=== PATIENT | female | born 1995 | race Caucasian/White ===

== ENCOUNTER 2018-08-06 13:59 | Inpatient (IN) | payer OTHER ==
[~2018-08-06] VITALS: Ht 149.9 cm; Wt 83.2 kg
[2018-08-06 14:13] VITALS: Ht 149.9 cm; Wt 83.2 kg
[2018-08-06 17:27] LABS: BASOPHIL % 0.4 % (0-2); PLATELET COUNT 341 x10^3mcL (130-400); RED CELL DISTRIBUTION WIDTH 13.5 % (11.5-14.5)
[2018-08-06 17:32] LABS: CALCIUM 9.8 mg/dL (8.5-10.1); CARBON DIOXIDE 25.1 mmol/L (21-32); CHLORIDE SERUM 101 mmol/L (98-107); CREATININE SERUM 0.6 mg/dL (0.6-1.0); GFR1 > 60 mL/min; GLUCOSE SERUM 90 mg/dL (74-106); POTASSIUM SERUM 3.6 mmol/L (3.5-5.1); SODIUM SERUM 138 mmol/L (136-145)
[2018-08-06 17:37] LABS: ALBUMIN 4.1 g/dL (3.4-5.0); ALKALINE PHOSPHATASE 107 U/L (46-116); ALT/SGPT 34 U/L (14-59); AST/SGOT 11 U/L (15-37); BILIRUBIN TOTAL 0.44 mg/dL (0.20-1.00)
[2018-08-06 17:38] LABS: TOTAL PROTEIN, SERUM 8.7 g/dL (6.4-8.2)
[2018-08-06] MEDS ORDERED: ALBUTEROL0.63 MG/3 (21:33)
[2018-08-06] MEDS ORDERED: ZYRTEC10 MG (21:33)
[2018-08-06 21:52] LABS: microscopic required? YES; urine erythrocyte TRACE (NEGATIVE)
[2018-08-06 22:12] LABS: MAGNESIUM 1.8 mg/dL (1.8-2.4); PHOSPHOROUS 3.4 mg/dL (2.5-4.9)
[2018-08-06 22:13] LABS: CHOLESTEROL/HDL RATIO 2.2
[2018-08-06 23:07] VITALS: BP 120/63
[2018-08-07 06:03] VITALS: BP 102/56
[2018-08-07 08:04] VITALS: BP 122/58
[2018-08-07 08:34] LABS: CHLORIDE SERUM 104 mmol/L (98-107); POTASSIUM SERUM 3.4 mmol/L (3.5-5.1); SODIUM SERUM 140 mmol/L (136-145)
[2018-08-07 08:37] LABS: BASOPHIL % 0.2 % (0-2); PLATELET COUNT 352 x10^3mcL (130-400); RED CELL DISTRIBUTION WIDTH 13.1 % (11.5-14.5)
[2018-08-07 08:46] LABS: CALCIUM 9.1 mg/dL (8.5-10.1); CARBON DIOXIDE 23.9 mmol/L (21-32); CREATININE SERUM 0.9 mg/dL (0.6-1.0); GFR1 > 60 mL/min; GLUCOSE SERUM 103 mg/dL (74-106)
[2018-08-07 16:30] VITALS: BP 115/87
[2018-08-07 20:46] VITALS: BP 120/60
[2018-08-08 05:45] VITALS: BP 106/57
[2018-08-08 07:01] LABS: CALCIUM 8.5 mg/dL (8.5-10.1); CARBON DIOXIDE 25.8 mmol/L (21-32); CHLORIDE SERUM 106 mmol/L (98-107); CREATININE SERUM 0.7 mg/dL (0.6-1.0); GFR1 > 60 mL/min; GLUCOSE SERUM 87 mg/dL (74-106); POTASSIUM SERUM 3.4 mmol/L (3.5-5.1); SODIUM SERUM 141 mmol/L (136-145)
[2018-08-08 07:05] LABS: BASOPHIL % 0.2 % (0-2); PLATELET COUNT 329 x10^3mcL (130-400); RED CELL DISTRIBUTION WIDTH 12.9 % (11.5-14.5)
[2018-08-08 09:30] VITALS: BP 107/62
[2018-08-08 17:40] VITALS: BP 103/62
[2018-08-08 21:31] VITALS: BP 105/60
[2018-08-09 04:57] VITALS: BP 101/59
[2018-08-09 06:18] LABS: BASOPHIL % 0.2 % (0-2); PLATELET COUNT 370 x10^3mcL (130-400); RED CELL DISTRIBUTION WIDTH 13.1 % (11.5-14.5)
[2018-08-09 06:32] LABS: CALCIUM 8.8 mg/dL (8.5-10.1); CARBON DIOXIDE 21.1 mmol/L (21-32); CHLORIDE SERUM 109 mmol/L (98-107); CREATININE SERUM 0.7 mg/dL (0.6-1.0); GFR1 > 60 mL/min; GLUCOSE SERUM 80 mg/dL (74-106); POTASSIUM SERUM 3.8 mmol/L (3.5-5.1); SODIUM SERUM 142 mmol/L (136-145)
[2018-08-09 09:43] VITALS: BP 108/65
[2018-08-09] MEDS ORDERED: MI-ACID GAS REL80 MG PO (10:10)
[2018-08-09] MEDS ORDERED: IBUPROFEN400 MG PO (10:11)
[2018-08-09 10:17] VITALS: BP 108/65
== END 2018-08-09 14:52 | disposition home or self-care (01) | DRG 233 ==
LOC: ED 13:59 → MU 21:24
PROVIDERS: Emergency Medicine; Surgery; ADMIT General Practice
PROC: 0DTJ4ZZ Resection of Appendix, Percutaneous Endoscopic Approach (ICD-10-PCS; principal; 2018-08-07 08:30)
DX: K35.32 Acute appendicitis with perforation, localized peritonitis, and gangrene, without abscess (principal); E66.9 Obesity, unspecified; J45.909 Unspecified asthma, uncomplicated; Z68.38 Body mass index [BMI] 38.0-38.9, adult; Z71.3 Dietary counseling and surveillance
CPT/HCPCS: J0690; J0694; J1170; J1885; J2405; J2543; J3010; J3490; J7030; Q0092

== ENCOUNTER 2018-08-30 07:26 | Emergency (ER) | payer OTHER ==
[~2018-08-30] VITALS: Ht 149.9 cm; Wt 83.0 kg
[~2018-08-30 07:26] MED LIST: ALBUTEROL0.63 MG/3; IBUPROFEN400 MG PO; MI-ACID GAS REL80 MG PO; ZYRTEC10 MG
[2018-08-30 07:29] VITALS: Ht 149.9 cm; Wt 83.0 kg
[2018-08-30 09:37] LABS: BASOPHIL % 0.5 % (0-2); PLATELET COUNT 373 x10^3mcL (130-400); RED CELL DISTRIBUTION WIDTH 13.3 % (11.5-14.5)
[2018-08-30 09:54] VITALS: BP 128/71
== END 2018-08-30 09:54 | disposition home or self-care (01) ==
LOC: ED 07:26
PROVIDERS: Emergency Medicine
DX: G89.18 Other acute postprocedural pain (principal); R10.32 Left lower quadrant pain; J45.909 Unspecified asthma, uncomplicated; Z90.89 Acquired absence of other organs
CPT/HCPCS: 36415